=== PATIENT | male | born 1990 | race Caucasian/White ===

== ENCOUNTER 2019-01-05 17:35 | Emergency (ER) | payer BC, OTHER ==
[2019-01-05] MEDS ORDERED: LORAZEPAM 1 MG TABLET PO ONE (19:26)
--- NOTE | 2019-01-05 19:27 | ER Document Report ---
ED Medical Screen (RME) - General Chief Complaint: Palpitations Stated Complaint: CHEST PAIN Time Seen by Provider: 01/05/19 19:26 TRAVEL OUTSIDE OF THE [place] IN LAST 30 DAYS: No - HPI Notes: 01/05/19 19:27 see downtime papers - Related Data Allergies/Adverse Reactions: amoxicillin Allergy (Verified 01/05/19 17:38)
[2019-01-05 19:33] LABS: ABSOLUTE BASOPHILS # (AUTO) 0.1 10^3/uL (0.0-0.2); ABSOLUTE LYMPHOCYTES (AUTO) 2.2 10^3/uL (0.5-4.7); ABSOLUTE MONOCYTES (AUTO) 1.2 10^3/uL (0.1-1.4); ABSOLUTE NEUT (AUTO) 15.2 10^3/uL (1.7-8.2); BASOPHILS % (AUTO) 0.3 % (0-2); EOSINOPHILS % (AUTO) 0.2 % (0-6); HEMATOCRIT 49.5 % (37.9-51.0); HEMOGLOBIN 17.6 g/dL (13.5-17.0); LYMPHOCYTES % (AUTO) 11.8 % (13-45); MEAN CORPUSCULAR HEMOGLOBIN 30.9 pg (27.0-33.4); MEAN CORPUSCULAR HGB CONC 35.6 g/dL (32.0-36.0); MEAN CORPUSCULAR VOLUME 87 fl (80-97); MONOCYTES % (AUTO) 6.2 % (3-13); PLATELET COUNT 344 10^3/uL (150-450); RED BLOOD COUNT 5.69 10^6/uL (4.35-5.55); RED CELL DISTRIBUTION WIDTH 13.4 % (11.5-14.0); SEGMENTED NEUTROPHILS % (AUTO) 81.5 % (42-78); TOTAL CELLS COUNTED % (AUTO) 100 %; WHITE BLOOD COUNT 18.6 10^3/uL (4.0-10.5)
[2019-01-05 19:36] LABS: INTERNATIONAL RATION (INR) 0.98; PROTHROMBIN TIME 13.5 SEC (11.4-15.4)
[2019-01-05 19:37] LABS: PARTIAL THROMBOPLASTIN TIME 30.4 SEC (23.5-35.8)
[2019-01-05 19:46] LABS: ALANINE AMINOTRANSFERASE 72 U/L (21-72); ALKALINE PHOSPHATASE 83 U/L (38-126); ANION GAP 14 (5-19); ASPARTATE AMINO TRANSFERASE 41 U/L (17-59); BILIRUBIN,DIRECT 0.3 mg/dL (0.0-0.4); BILIRUBIN,TOTAL 0.4 mg/dL (0.2-1.3); BLOOD UREA NITROGEN 10 mg/dL (7-20); CALCIUM 10.5 mg/dL (8.4-10.2); CARBON DIOXIDE 22 mmol/L (22-30); CHLORIDE 103 mmol/L (98-107); GLUCOSE 109 mg/dL (75-110); PHOSPHORUS 3.5 mg/dL (2.5-4.5); POTASSIUM 4.1 mmol/L (3.6-5.0); SALICYLATE 6.3 mg/dL (2.0-20.0); SODIUM 139.2 mmol/L (137-145); TOTAL PROTEIN 8.4 g/dL (6.3-8.2)
[2019-01-05 19:50] LABS: D-DIMER < 0.27 ug/mL (0.00-0.50)
[2019-01-05] MEDS ORDERED: NORMAL SALINE 1000 ML 1,000 ML IV ONE (20:21)
--- NOTE | 2019-01-05 20:25 | ER Document Report ---
ED Cardiac - General Chief Complaint: Palpitations Stated Complaint: CHEST PAIN Time Seen by Provider: 01/05/19 19:26 Mode of Arrival: Ambulatory Information source: Patient TRAVEL OUTSIDE OF THE [place] IN LAST 30 DAYS: No - HPI Patient complains to provider of: Palpitations Notes: Patient is here with complaints of palpitations. Patient states that woke up this morning feeling somewhat nauseous. Apparently his son as well as his have both had gastroenteritis recently. He ate some pancakes and when out shopping with his when he had an episode of vomiting. He then went home, and when he laid down he felt like his heart was beating fast and hard. He denies any chest pain or shortness of breath, he just felt like his heart was beating too fast and beating hard. He denies any recent long trips or surgeries, leg pain or leg swelling, cancer, history of DVT or PE. He does have a history of hypertension, he does not currently see a primary care doctor and is not on antihypertensive medications. No history of hyperlipidemia, diabetes, CAD. He denies any drug use. He is a smoker. He denies any abdominal pain at this time. He denies any unilateral numbness, tingling, weakness. No headache or blurred vision. No rash. No injury. States that right now aside from him feeling like his heart is beating fast, he feels fine. Nothing seems to make his symptoms better or worse. Symptoms are mild to moderate. No other complaints at this time. - Related Data Allergies/Adverse Reactions: amoxicillin Allergy (Verified 01/05/19 17:38) Past Medical History - Social History Smoking Status: Current Every Day Smoker Family History: Reviewed & Not Pertinent Review of Systems - Review of Systems -: Yes All other systems reviewed and negative Physical Exam - Vital signs Vitals: Resp Pulse Ox 12 96 01/05/19 20:39 01/05/19 20:39 - Notes Notes: GENERAL: alert, cooperative, nontoxic, no distress. HEAD: normocephalic, atraumatic EYES: conjunctiva pink without discharge, no external redness or swelling. EARS: no external swelling, no external redness NOSE: atraumatic, no external swelling MOUTH/THROAT: mucous membranes moist and pink, posterior pharynx without erythema, swelling, exudate. No trismus or drooling. NECK: soft, supple, full range of motion, no meningismus. CHEST: no distress, lungs clear and equal throughout. No wheezing, rales, rhonchi. CARDIAC: regular rhythm, mild tachycardia, no murmur, normal capillary refill, normal pulses. No peripheral edema noted. ABDOMEN: Soft, nontender. BACK: full range of motion, no CVA tenderness. EXTREMITIES: full range of motion of all extremities. No redness, no swelling. NEURO: alert and oriented x 3, no focal deficits, full range of motion of all extremities. PYSCH: appropriate mood, affect. Patient is cooperative. SKIN: pink, warm, dry, no rash. Course - Re-evaluation Re-evalutation: 01/05/19 22:40 3 patient is nontoxic-appearing at this time. States that he is feeling significantly better at this time. Heart rate has improved and is in the mid 90s. Currently awaiting chest x-ray results by radiologist. I have updated the family with this. We will continue to monitor. 01/05/19 23:42 Patient is feeling significantly better at this time. Patient comes in with complaints of a few episodes of vomiting followed by feeling like his heart was beating hard and some palpitations. No chest pain or shortness of breath. He has no PE risk factors, d-dimer is negative. EKG showed a sinus tachycardia with no other abnormalities. Troponin is negative. He is noted to have a nonspecific elevation of his white blood cell count 18. He has no other infectious symptoms. Patient is feeling significant better after IV fluids and 1 dose of Ativan. Chest x-ray is negative for acute findings. Urinalysis shows no signs of infection. Urine drug screen is negative. It is possible that the patient had a mild viral gastroenteritis as his and children had similar symptoms earlier this week. That could potentially explain his elevated white blood cell count as well. He does not appear to be septic. At this point I believe that the patient can be discharged home with instructions to follow-up with his primary care doctor at the next available appointment. He will be given a referral to cardiology for his palpitations. He was instructed to follow-up sooner or return the emergency department immediately for worsening pain, high fever, persistent vomiting, or for any further concerns. Patient has no abdominal tenderness on exam at this time. He has no other complaints at this time. The patient's emergency department workup and current diagnosis were explained to the patient and or family. Follow-up instructions were provided. Medications if prescribed were discussed. Instructions for when to return to the emergency department including specific worrisome symptoms were discussed with the patient and/or family. - Vital Signs Vital signs: Temp Pulse Resp BP Pulse Ox 98.1 F 18 133/75 H 94 01/05/19 21:54 01/05/19 23:01 01/05/19 23:01 01/05/19 23:01 - Laboratory Result Diagrams: 01/05/19 18:53 01/05/19 18:53 Laboratory results interpreted by me: 01/05/19 01/05/19 18:53 18:53 WBC 18.6 H RBC 5.69 H Hgb 17.6 H Seg Neutrophils % 81.5 H Lymphocytes % 11.8 L Absolute Neutrophils 15.2 H Calcium 10.5 H Total Protein 8.4 H - Diagnostic Test Radiology reviewed: Image reviewed, Reports reviewed - Negative chest x-ray - EKG Interpretation by Me EKG shows normal: Sinus rhythm, [place], Intervals, QRS Complexes, ST-T Waves Rate: Tachycardia When compared to previous EKG there are: Other - No ST or T wave abnormalities. QT interval 292. No STEMI. Discharge - Discharge Clinical Impression: Palpitations Nausea & vomiting Qualifiers: Vomiting type: unspecified Vomiting Intractability: non-intractable Qualified Code(s): R11.2 - Nausea with vomiting, unspecified Disposition: HOME, SELF-CARE Instructions: Vomiting ([facility]), Palpitations (Irregular or Rapid Heartrate) ([facility]) Additional Instructions: Take medication as prescribed. Tylenol Motrin as needed for pain. Drink plenty fluids. Follow-up with cardiology at the next available appointment. Follow-up with primary care at the next available appointment. Follow-up sooner for worsening pain, fever, numbness, tingling, weakness, chest pain or shortness of breath, passing out, persistent vomiting, severe abdominal pain, or for any further concerns. Prescriptions: Ondansetron HCl [Zofran 4 mg Tablet] 1 - 2 tab PO Q4H PRN #10 tablet PRN Reason: Forms: Elevated Blood Pressure, Smoking Cessation Education Referrals: SANJAY WASHBURN MD [[facility]] - Follow up as needed [facility] [Provider Group] - Follow up as needed
[2019-01-05 21:01] LABS: APPEARANCE,URINE CLEAR; BILIRUBIN,URINE NEGATIVE (NEGATIVE); COLOR,URINE YELLOW; GLUCOSE, URINE NEGATIVE (NEGATIVE); KETONES,URINE NEGATIVE (NEGATIVE); LEUKOCYTE ESTERASE,URINE NEGATIVE (NEGATIVE); NITRITE,URINE NEGATIVE (NEGATIVE); PROTEIN,URINE NEGATIVE (NEGATIVE); URINE SPECIFIC GRAVITY 1.016; UROBILINOGEN,URINE NEGATIVE mg/dL (<2.0)
[2019-01-05 21:09] LABS: URINE AMPHETAMINES SCREEN NEGATIVE; URINE BARBITURATES SCREEN NEGATIVE; URINE BENZODIAZEPINES SCREEN NEGATIVE; URINE COCAINE SCREEN NEGATIVE; URINE MARIJUANA (THC) SCREEN NEGATIVE; URINE METHADONE SCREEN NEGATIVE; URINE PHENCYCLIDINE SCREEN NEGATIVE
--- NOTE | 2019-01-05 21:20 | EKG REPORT ---
SEVERITY:- OTHERWISE NORMAL ECG - SINUS TACHYCARDIA : Confirmed by: Jacob Howard MD 05-Jan-2019 21:19:10
--- NOTE | 2019-01-05 23:29 | RADIOLOGY REPORT (SQ) ---
EXAM DESCRIPTION: XR CHEST 2 VIEWS COMPLETED DATE/TME: 01/05/2019 20:12 CLINICAL HISTORY: cp COMPARISON: None. FINDINGS: Frontal and lateral views of the chest. The cardiomediastinal silhouette has normal size and contour. No consolidation, pneumothorax, or pleural effusion. No acute fractures identified. Upper abdominal soft tissues are unremarkable. IMPRESSION: 1. No acute pulmonary process identified.
[2019-01-06 00:12] VITALS: BP 109/57
== END 2019-01-06 00:12 | disposition home or self-care (01) ==
LOC: ER 17:35
DX: R00.2 Palpitations (principal); R11.2 Nausea with vomiting, unspecified; F17.200 Nicotine dependence, unspecified, uncomplicated; Z88.0 Allergy status to penicillin
CPT/HCPCS: 93005; 99285; 96360; 36415; 83735; 84100; 80307 ×2; 84443; 85025; 85610; 85730; 80053; 81001; 84484; 85379; 71046; 93010; J7030